=== PATIENT | male | born 1985 | race Caucasian/White ===

== ENCOUNTER 2019-09-17 23:48 | Emergency (ER) | payer SELFPAY ==
--- NOTE | 2019-09-18 00:10 | NUR ---
Pt started to give rude comments on everyone in the waiting room. Started an argument with the father of one of the patients. Security was called and tried to pacify situation. Pt still did not stop arguing, PD has been called.
--- NOTE | 2019-09-18 00:10 | NUR ---
Note lorena in ED - 09/18/19 at 0247 by [email or web address] Pt started to give rude comments on everyone at the waiting room. Started an argument with a father of one of the patients. Security was called and try to pacify situation. Pt still did not stop arguing, PD was called.
--- NOTE | 2019-09-18 00:30 | NUR ---
Pt walked out with family. Patient left without being seen. No further treatment provided. ER MD aware
== END 2019-09-18 00:30 | disposition left against medical advice (07) ==
LOC: SED 23:48
DX: R07.89 Other chest pain (principal); Z53.21 Procedure and treatment not carried out due to patient leaving prior to being seen by health care provider